=== PATIENT | male | born 1955 | race Caucasian/White ===

== ENCOUNTER → 2016-09-29 | Outpatient (REF) ==
--- NOTE | 2016-09-30 02:31 | REP ---
Clinical: Pain and disability. Technique: AP, lateral, bilateral oblique and sunrise views to the left knee. Comparison: None. Findings: A crescent shaped defect is identified at the articular surface of the medial femoral condyle suggesting prior fracture / osteochondritis desiccans. Moderate tricompartmental degenerative changes are also noted including marginal osteophytes along the distal femoral condyles, proximal tibia and patellar contour with associated tibiofemoral and patellofemoral joint space narrowing. No obvious acute fracture. No definite effusion or significant swelling. Impression: Chronic degenerative and possibly post traumatic changes as described above. Signed by Linden Ambrosio MD 09/30/2016 02:23 A
--- NOTE | 2016-09-30 03:00 | REP ---
Clinical: Pain and disability. Technique: Internal rotation, external rotation, and Y view of the left shoulder. Findings: Subtle cortical irregularity at the acromioclavicular joint is appreciated along with heterogeneity and blunting to the glenoid rim suggesting mild arthritic degenerative changes. Subacromial space is normal. No periarticular calcifications are identified. No evidence for acute or healed fracture/dislocation. Impression: Mild age-related degenerative changes. Signed by Linden Ambrosio MD 09/30/2016 02:52 A
== END ==
LOC: M SMT 12:53
PROVIDERS: ATTEND Internal Medicine
DX: M17.9 Osteoarthritis of knee, unspecified (principal); M19.212 Secondary osteoarthritis, left shoulder